=== PATIENT | male | born 1980 | race African-American/Black ===

== ENCOUNTER 2020-08-09 19:13 | Emergency (ER) | payer SELFPAY ==
[2020-08-09 19:40] VITALS: TEMP 98.2; BMI 24.4
[2020-08-09] MEDS ORDERED: SODIUM CHLORIDE 1,000 ML IV STA (20:01)
[2020-08-09] MEDS ORDERED: ONDANSETRON 4 MG/2 ML VIAL IVPUSH ONE (20:17)
[2020-08-09 20:54] LABS: HEMATOCRIT 48.4 % (35.4-49); HEMOGLOBIN 16.6 GM/dL (11.7-16.9); MCH 31.9 pg (25.7-33.7); MCHC 34.2 g/dl (32.0-35.9); MEAN CELL VOLUME 93.3 fl (80-96); MEAN PLT VOLUME 8.5 fl (7.5-11.1); PLATELET COUNT 220 K/MM3 (134-434); RBC 5.19 M/mm3 (4.00-5.60); RDW 13.1 % (11.9-15.9); WHITE BLOOD COUNT 12.8 K/mm3 (4.0-10.0)
[2020-08-09 21:22] LABS: POTASSIUM 3.5 mmol/L (3.5-5.1)
[2020-08-09 21:24] LABS: INR 0.93 (0.83-1.09); PROTHROMBIN TIME (PATIENT) 11.3 SEC (9.7-13.0)
[2020-08-09 21:25] LABS: ALBUMIN 3.8 g/dl (3.4-5.0); BLOOD UREA NITROGEN 17.3 mg/dL (7-18); CALCIUM 9.8 mg/dL (8.5-10.1); MAGNESIUM 2.1 mg/dL (1.8-2.4)
[2020-08-09 21:29] LABS: PHOSPHOROUS 2.3 mg/dL (2.5-4.9)
[2020-08-09 21:30] LABS: BILIRUBIN,TOTAL 0.3 mg/dL (0.2-1); TOT PROT 7.6 g/dl (6.4-8.2)
[2020-08-09] MEDS ORDERED: CIPROFLOXACIN 400 MG/D5W 400 MG/200 ML IVPB IVPB ONE (23:12)
[2020-08-09] MEDS ORDERED: metroNIDAZOLE 250 MG TABLET PO ONE (23:28)
[2020-08-09] MEDS ORDERED: metroNIDAZOLE 250 MG TABLET ONE (23:29)
[2020-08-09 23:43] VITALS: BP 112/64; PULSE 71
[2020-08-10 00:44] LABS: URINE COLOR YELLOW
[2020-08-10 00:45] LABS: URINE APPEARANCE CLEAR; URINE BILIRUBIN NEGATIVE (NEGATIVE); URINE GLUCOSE (UA) NEGATIVE (NEGATIVE); URINE KETONE 40 mg/dl (NEGATIVE); URINE PROTEIN TRACE (NEGATIVE)
[2020-08-10 00:46] LABS: URINE LEUK ESTERASE NEGATIVE (NEGATIVE); URINE NITRITE NEGATIVE (NEGATIVE); URINE UROBILINOGEN 0.2 mg/dL (0.2-1.0)
[2020-08-10 01:43] LABS: EPI CELLS 7 /uL (0-25.1); HYALINE CASTS 1 /uL (0-3.1); URINE RBC 213 /uL (0-23.9); URINE WBC 5 /uL (0-25.8)
[2020-08-10 01:44] LABS: URINE BACTERIA 7 /uL (0-1359)
== END 2020-08-09 23:54 | disposition left against medical advice (07) ==
LOC: JER 19:13
PROC: 3E033GC Introduction of Other Therapeutic Substance into Peripheral Vein, Percutaneous Approach (ICD-10-PCS; principal; 2020-08-09)
PROC: 3E0337Z Introduction of Electrolytic and Water Balance Substance into Peripheral Vein, Percutaneous Approach (ICD-10-PCS; principal; 2020-08-09)
DX: K51.00 Ulcerative (chronic) pancolitis without complications (principal); R10.32 Left lower quadrant pain; R19.7 Diarrhea, unspecified
CPT/HCPCS: 36415; 74177-TC; 80053; 81003; 82272; 83605; 83735; 84100; 85027; 85610; 85730; 86850; 86900; 86901; 87086; 99285-25; C9803; Q9967; U0003